=== PATIENT | female | born 1980 | race Caucasian/White ===

== ENCOUNTER 2017-03-09 11:24 | Emergency (ER) | payer OTHER ==
[~2017-03-09 11:24] MED LIST: ACYCLOVIR800 MG PO; ATA25 PO; CETIRIZINE HYDR10 MG PO; CLA10 PO; COL100 PO; DIL2 PO; DIPHENHYDRAMINE25 M2 PO; DOXYCYCLINE100 M4 PO; MEDROL4 MG PO; NEU300 PO; [UNRECOGNIZED DRUG - CODE] TOP
== END 2017-03-09 12:21 | disposition left against medical advice (07) ==
LOC: ED 11:24
DX: Z53.21 Procedure and treatment not carried out due to patient leaving prior to being seen by health care provider (principal)

== ENCOUNTER 2018-04-20 10:39 | Emergency (ER) | payer OTHER ==
[~2018-04-20] VITALS: Ht 144.8 cm; Wt 55.3 kg
[2018-04-20 10:48] VITALS: Ht 144.8 cm; Wt 55.3 kg
[2018-04-20 12:01] LABS: CALCIUM 9.1 mg/dL (8.5-10.1); CARBON DIOXIDE 28.9 mmol/L (21-32); CHLORIDE SERUM 105 mmol/L (98-107); CREATININE SERUM 0.6 mg/dL (0.6-1.0); GFR1 > 60 mL/min; GLUCOSE SERUM 93 mg/dL (74-106); POTASSIUM SERUM 3.7 mmol/L (3.5-5.1); SODIUM SERUM 139 mmol/L (136-145)
[2018-04-20 12:16] LABS: ALBUMIN 3.9 g/dL (3.4-5.0); ALKALINE PHOSPHATASE 87 U/L (46-116); ALT/SGPT 22 U/L (14-59); AMYLASE 35 U/L (25-115); AST/SGOT 17 U/L (15-37); BILIRUBIN TOTAL 0.4 mg/dL (0.20-1.00); LIPASE 103 IU/L (73-393); TOTAL PROTEIN, SERUM 7.8 g/dL (6.4-8.2)
[2018-04-20 12:41] LABS: BASOPHIL % 0.3 % (0-2); PLATELET COUNT 330 x10^3mcL (130-400); RED CELL DISTRIBUTION WIDTH 13.1 % (11.5-14.5)
[2018-04-20 14:09] VITALS: BP 125/80
== END 2018-04-20 14:09 | disposition home or self-care (01) ==
LOC: ED 10:39
PROVIDERS: Emergency Medicine
DX: N83.201 Unspecified ovarian cyst, right side (principal); G43.909 Migraine, unspecified, not intractable, without status migrainosus
CPT/HCPCS: 83880; 87046; 87046-59; J1885; J2405; J7030

== ENCOUNTER 2018-10-27 19:18 | Emergency (ER) | payer OTHER ==
[~2018-10-27] VITALS: Ht 144.8 cm; Wt 57.2 kg
[2018-10-27 19:30] VITALS: Ht 144.8 cm; Wt 57.2 kg
[2018-10-27 21:11] VITALS: BP 130/73
== END 2018-10-27 21:11 | disposition home or self-care (01) ==
LOC: ED 19:18
DX: S93.401A Sprain of unspecified ligament of right ankle, initial encounter (principal); G43.909 Migraine, unspecified, not intractable, without status migrainosus; W18.40XA Slipping, tripping and stumbling without falling, unspecified, initial encounter; Y93.89 Activity, other specified; Y92.89 Other specified places as the place of occurrence of the external cause; Y99.8 Other external cause status
CPT/HCPCS: Q0092

== ENCOUNTER 2019-05-17 19:42 | Emergency (ER) | payer OTHER ==
[~2019-05-17] VITALS: Ht 149.9 cm; Wt 54.0 kg
[2019-05-17 19:49] VITALS: Ht 149.9 cm; Wt 54.0 kg
[2019-05-17 21:00] LABS: BASOPHIL % 1.1 % (0-2); PLATELET COUNT 327 x10^3mcL (130-400); RED CELL DISTRIBUTION WIDTH 12.9 % (11.5-14.5)
[2019-05-17 21:01] LABS: CALCIUM 9.6 mg/dL (8.5-10.1); CARBON DIOXIDE 24.7 mmol/L (21-32); CHLORIDE SERUM 104 mmol/L (98-107); CREATININE SERUM 0.7 mg/dL (0.6-1.0); GFR1 > 60 mL/min; GLUCOSE SERUM 95 mg/dL (74-106); POTASSIUM SERUM 3.7 mmol/L (3.5-5.1); SODIUM SERUM 141 mmol/L (136-145)
[2019-05-17 21:05] LABS: ALBUMIN 4.4 g/dL (3.4-5.0); ALKALINE PHOSPHATASE 72 U/L (46-116); ALT/SGPT 21 U/L (14-59); AST/SGOT 14 U/L (15-37); BILIRUBIN TOTAL 0.24 mg/dL (0.20-1.00); TOTAL PROTEIN, SERUM 8.5 g/dL (6.4-8.2)
[2019-05-17 22:24] VITALS: BP 125/92
== END 2019-05-17 22:24 | disposition home or self-care (01) ==
LOC: ED 19:42
DX: M54.12 Radiculopathy, cervical region (principal); R07.89 Other chest pain; G43.909 Migraine, unspecified, not intractable, without status migrainosus
CPT/HCPCS: 36415; 85378; Q0162